=== PATIENT | female | born 1955 | race Caucasian/White ===

== ENCOUNTER → 2018-06-26 | Outpatient (CLI) | payer BC | LOC: MAMMO 06-19 08:30 | DX: Z12.31 Encounter for screening mammogram for malignant neoplasm of breast (principal) ==

== ENCOUNTER → 2021-03-03 | Outpatient (CLI) | payer MEDICARE, OTHER | LOC: RAD 09:18 → MAMMO 10:00 | DX: Z13.820 Encounter for screening for osteoporosis (principal); M85.80 Other specified disorders of bone density and structure, unspecified site; Z78.0 Asymptomatic menopausal state ==

== ENCOUNTER → 2021-03-03 | Outpatient (CLI) | payer MEDICARE, OTHER | LOC: MAMMO 09:13 | DX: Z12.31 Encounter for screening mammogram for malignant neoplasm of breast (principal) ==

== ENCOUNTER → 2024-07-04 | Outpatient (CLI) | payer MEDICARE | LOC: MAMMO 08:00 | DX: Z12.31 Encounter for screening mammogram for malignant neoplasm of breast (principal) ==